=== PATIENT | male | born 1935 | race Two or more races ===

== ENCOUNTER 2024-03-11 08:48 | Emergency (ER) | payer MEDICARE, MEDICAID, SELFPAY ==
[2024-03-11 09:11] VITALS: BP 162/74; PULSE 68; RESP 20; TEMP 36.6; O2SAT 97; BMI 30.8
--- NOTE | 2024-03-11 09:35 | XR_ITS ---
Examination: PA lateral chest 2 views Technique: Upright PA lateral chest 2 views Exam date and time: March 11, 2024 1103 hours Comparison August 30, 2023 Indications: SOB chest pain onset today. Findings: Mild enlargement left ventricle COPD with significant hyperexpansion Prominent central pulmonary arteries pulmonary artery hypertension pattern Scarring in the lingular segment No lobar pneumonia or pulmonary edema Impression: COPD Pulmonary artery hypertension No lobar pneumonia or pulmonary edema
--- NOTE | 2024-03-11 09:36 | PD.EDRME ---
Rapid Medical Screening Exam RME Arrival date/time: 03/11/24 08:48 89-year-old male presents emergency department today complains of cough, congestion, body aches and shortness of breath Chief Complaint: Shortness of Breath/Dyspnea Vital signs: Vital Signs Temperature 97.8 F 03/11/24 09:11 Pulse Rate 68 03/11/24 09:11 Respiratory Rate 20 03/11/24 09:11 Blood Pressure 162/74 H 03/11/24 09:11 Pulse Oximetry (%) 97 03/11/24 09:11 Oxygen Delivery Method Room Air 03/11/24 09:11
[2024-03-11 09:56] LABS: Basophils % (Auto) 0 % (0-2.5); Eosinophils # (Auto) 0.2 Thou/mm3 (0.0-0.5); Eosinophils % (Auto) 2 % (0-10); Hemoglobin 11.8 g/dL (13.5-16.0); Immature Granulocytes % (Auto) 0 % (0-0); Immature Granulocytes Auto 0.02 Thou/mm3 (0.00-0.00); Lymphocytes # (Auto) 1.8 Thou/mm3 (1.0-4.8); Lymphocytes % (Auto) 27 % (10-50); Mean Corpuscular HGB Conc 32.8 g/dl (31.0-37.0); Mean Corpuscular Hemoglobin 28.9 pg (25.0-35.0); Mean Corpuscular Volume 88 fL (80-100); Monocytes # (Auto) 0.6 Thou/mm3 (0.0-0.8); Monocytes % (Auto) 10 % (0-12); Neutrophils # (Auto) 3.9 Thou/mm3 (1.8-7.7); Neutrophils % (Auto) 61 % (37-80); Nucleated Red Blood Cell % 0 /100 WBC (0); Platelet Count 321 Thou/mm3 (140-440); RDW Standard Deviation 43.7 fL (35.1-43.9); Red Blood Count 4.09 Miln/mm3 (4.50-5.90); White Blood Count 6.5 Thou/mm3 (3.8-10.6)
[2024-03-11 10:14] LABS: Alanine Aminotransferase 15 U/L (10-49); Albumin, Serum 4.1 gm/dL (3.4-4.8); Albumin/Globulin Ratio 1.4 (1.2-2.2); Alkaline Phosphatase 83 U/L (46-116); Anion Gap 7 (7-16); Aspartate Amino Transferase 12 U/L (0-34); B-Type Natriuretic Peptide 75 pg/mL (0-100); BUN/Creatinine Ratio 16 Ratio (12-20); Bilirubin,Total 0.4 mg/dL (0.3-1.2); Blood Urea Nitrogen 14 mg/dL (9-23); Calcium 8.9 mg/dL (8.3-10.6); Calcium (Corrected) 8.9 mg/dL (8.5-10.1); Carbon Dioxide 28.7 mMol/L (20.0-31.0); Chloride 106 mMol/L (98-107); Creatinine (Component) 0.9 mg/dL (0.6-1.3); Estimated Creatinine Clearance 59.7 mL/min (>60); Globulin 2.9 gm/dL (2.3-3.5); Glucose 107 mg/dL (74-106); Osmolality,Calculated 283 (275-295); Sodium 142 mMol/L (136-145); Troponin I < 0.020 ng/mL (0.0-0.045); eGFR > 60 See Note
[2024-03-11 12:47] VITALS: BP 147/74; PULSE 62; RESP 18; TEMP 37; O2SAT 98
--- NOTE | 2024-03-11 13:11 | PD.EDSOB ---
ED SOB =RME/HPI General Chief Complaint: Shortness of Breath/Dyspnea Stated Complaint: SOB, EPIGASTRIC PAIN, DIZZINESS Time Seen by Provider: 03/11/24 12:51 Arrival date/time: 03/11/24 08:48 This is an 89 male that comes to the emergency room with complaints of shortness of breath. Patient states that he has been sick for the last 15 days. He has been coughing and having shortness of breath. Patient denies past medical history. Patient states he has had a hard time at night because he has been coughing so much. Patient states that he feels fatigued. RME / HPI RME / HPI Narrative: 03/11/24 08:48 89-year-old male presents emergency department today complains of cough, congestion, body aches and shortness of breath Related Data Home Medications ?Medication ?Instructions ?Recorded ?Confirmed Ketorolac Tromethamine * (TORADOL 10 mg PO Q6HR PRN PAIN #0 tabs 11/05/16 *) PARACETAMOL 500 mg PO PRN PRN SEDATION ##0 11/05/16 omeprazole 20 mg capsule,delayed 20 mg PO QDAY ##0 11/05/16 release Previous Rx's ?Medication ?Instructions ?Recorded famotidine 20 mg tablet 20 mg PO QDAY #10 tabs 08/30/23 albuterol sulfate 90 mcg/actuation 2 puff inhalation QID PRN 03/11/24 aerosol inhaler shortness of breath or wheezing #8.5 grams Allergies Allergy/AdvReac Type Severity Reaction Status Date / Time NKA* Allergy Uncoded 03/22/17 13:11 Review of Systems Review of Systems Systems Reviewed: All systems reviewed, normal except as documented Past Medical History Past Medical History Comments PMH COMMENT: denies ED Exam General General appearance: Present alert and in no apparent distress Head Head exam: Present atraumatic Eye Eye exam: Present normal appearance, PERRL and EOMI ENT ENT exam: Present normal exam, normal oropharynx and mucous membranes moist Neck Neck exam: Present normal inspection, full ROM and trachea midline Chest Chest inspection: Present normal inspection and symmetric chest wall rise Respiratory Respiratory exam: Present other (Wheezing right posterior) Cardiovascular Cardiovascular exam: Present regular rate, normal rhythm and normal heart sounds Abdominal Exam Abdominal exam: Present soft Extremities Exam Extremities exam: Present normal inspection and full ROM Back Exam Back exam: Present normal inspection and full ROM Neurological Exam Neurological exam: Present alert and oriented X3 Psychiatric Psychiatric exam: Present normal affect and normal mood Skin Skin exam: Present warm, dry, intact and normal color Course Quality Measures none Orders Category Date Time Status Bedside COVID-19 Antigen Test NOW Care 03/11/24 13:26 Completed Bedside Influenza A&B Antigen Test NOW Care 03/11/24 13:26 Completed EKG (ED ONLY) *Do not use* NOW Care 03/11/24 08:59 Completed EKG (ED Only) Stat Exams 03/11/24 08:59 Ordered XR chest 2V Stat Exams 03/11/24 09:35 Completed BNP [B-Type Natriuretic Peptide] Stat Lab 03/11/24 09:42 Completed CBC Stat Lab 03/11/24 09:42 Completed Comprehensive Metabolic Panel Stat Lab 03/11/24 09:42 Completed Troponin I Stat Lab 03/11/24 09:42 Completed Acetaminophen Tab [Tylenol ES Tab] Med 03/11/24 13:29 Discontinued 1,000 mg PO X1 ONE Albuterol/Ipratr Rt Lucy [Duoneb Rt Lucy] Med 03/11/24 13:25 Discontinued 3 ml INH X1 ONE Dexamethasone Inj [Decadron Inj] Med 03/11/24 17:23 Discontinued 10 mg PO X1 ONE Ibuprofen Tab [Motrin Tab] Med 03/11/24 13:29 Discontinued 800 mg PO X1 ONE Vital Signs Vital signs: Vital Signs Temperature 97.8 F 03/11/24 09:11 Pulse Rate 68 03/11/24 09:11 Respiratory Rate 20 03/11/24 09:11 Blood Pressure 162/74 H 03/11/24 09:11 Pulse Oximetry (%) 97 03/11/24 09:11 Oxygen Delivery Method Room Air 03/11/24 09:11 Procedures -ED EKG Interpretation #1: Date of EK03/11/24 Time of EK:10 Rate: 70 Interpretation: Interpreted by me (Sinus rhythm Q wave in 1 week V1 and V2) EKG Impression: No ectopy, Normal QRS and Normal intervals Shortness of Breath / Dyspnea MDM Narrative MDM Narrative:: chest x ray Shows: Findings: Mild enlargement left ventricle COPD with significant hyperexpansion Prominent central pulmonary arteries pulmonary artery hypertension pattern Scarring in the lingular segment No lobar pneumonia or pulmonary edema Impression: COPD Pulmonary artery hypertension No lobar pneumonia or pulmonary edema labs reviewed. Patient slightly anemic on CBC. CMP unremarkable. Troponin unremarkable. BMP unremarkable. Patient improved after breathing treatment. Patient states he feels better. Will send patient home with an inhaler. Will give pt a dose of decadron. Pt comfortable with plan of care Patient data External records reviewed:: [facility] previous records Clinical information provided by:: patient Social determinants that could affect healthcare access:: none Patient has the following chronic illnesses:: see hpi How is presenting disease/condition affected by chronic disease/condition?: exacerbated by Evaluation data The following diagnostics were reviewed and interpreted by me:: lab results, radiology exam(s) and EKG tracing(s) Lab and/or radiology exams considered but not ordered:: none Interpretation Summary: see note Medications / Prescriptions Medications or Prescriptions considered but not ordered:: none Medication administrations:: Medication Administration History Discontinued Medications Acetaminophen (Acetaminophen 500 Mg Tablet) 1,000 mg PO X1 ONE Stop: 03/11/24 13:30 Last Admin: 03/11/24 17:56 Dose: Not Given Documented By: DARELL Non-Admin Reason: Patient Refused Comments: PT STATES THAT HE WANTS SOMETHING FOR HIS COUGH Albuterol/Ipratropium (Albuterol/Ipratropium (Duoneb) Rt Lucy 3 Ml Nebu) 3 ml INH X1 ONE Stop: 03/11/24 13:26 Last Admin: 03/11/24 14:05 Dose: 3 ml Documented By: RUBEN Dexamethasone Sodium Phosphate (Dexamethasone Sod Phos Inj 10 Mg/Ml Vial) 10 mg PO X1 ONE Stop: 03/11/24 17:24 Last Admin: 03/11/24 17:54 Dose: 10 mg Documented By: DARELL Ibuprofen (Ibuprofen Tab 400 Mg Tablet) 800 mg PO X1 ONE Stop: 03/11/24 13:30 Last Admin: 03/11/24 17:57 Dose: Not Given Documented By: DARELL Non-Admin Reason: Patient Refused Comments: PT STATES THAT HE WANTS SOMETHING FOR HIS COUGH see [facility] Consultations Consultation(s) initiated? (list below): No Diagnosis Shortness of Breath Differential Diagnosis: acute exacerbation of chronic obstructive airways disease, congestive heart failure, community acquired pneumonia and asthma with exacerbation Most likely diagnosis given after review of the tests above:: reactive airway disease Admission Indicated Admission indicated?: not indicated Admission Request Was there a request for admission?: No Disposition Plan Disposition Plan: Discharge Discharge Attestation Discharge Attestation: The patient and all family members were given an opportunity to ask questions and understood the discharge instructions. Discharge instructions specifically effects, indications for sooner follow up or return to the emergency department, and the expected course of current diagnosis. Patient condition: Stable Discharge Plan Plan Patient Disposition: HOME (Self Care) Patient condition on transfer: Stable Prescriptions/Referrals Prescriptions/Med Rec: New albuterol sulfate 90 mcg/actuation HFA aerosol inhaler 2 puff inhalation QID PRN (Reason: shortness of breath or wheezing) Qty: 8.5 0RF No Action omeprazole 20 MG capsule,delayed release(DR/EC) 20 mg PO QDAY Qty: 0 Ketorolac Tromethamine * (TORADOL *) 10 MG tablet 10 mg PO Q6HR PRN (Reason: PAIN) Qty: 0 PARACETAMOL 500 mg PO PRN PRN (Reason: SEDATION) Qty: 0 famotidine 20 mg tablet 20 mg PO QDAY Qty: 10 0RF Referrals: No Primary/Family,Physician [Primary Care Provider] - In 1 week Problem List Clinical Impression: Cough, Reactive airway disease Patient/Caregiver Discharge Instructions Discharge Activity: activity as tolerated Education Materials: Asthma and COPD, ED Inhaler Use Additional Instructions: May use inhaler as needed. Come back to the emergency room if symptoms change or worsen. Please follow-up with primary provider in 1 to 2 days. Print Language: Hebrew Stand Alone Forms: Marlin Award Info., Patient Portal Info Letter KEM/MACKENZIE Supervising Physician KEM/MACKENZIE Supervising Physician: ace
[2024-03-11 14:05] VITALS: PULSE 61; RESP 14; O2SAT 95
[2024-03-11] MEDS: ALBUTEROL/IPRATROPIUM (Duoneb) RT SOL 3 ML NEBU INH (14:05)
[2024-03-11 14:34] VITALS: BP 175/77; PULSE 62; RESP 17; O2SAT 98
[2024-03-11 16:00] VITALS: BP 114/58; PULSE 75; RESP 19; TEMP 36.9; O2SAT 95
[2024-03-11] MEDS: DEXAMETHASONE SOD PHOS INJ 10 MG/ML VIAL PO (17:54)
[2024-03-11 18:14] VITALS: BP 174/76; PULSE 72; RESP 18; O2SAT 98
== END 2024-03-11 18:15 | disposition home or self-care (01) ==
PROVIDERS: Nurse Practitioner Primary Care; Emergency Provider Emergency Medicine
DX: J45.909 Unspecified asthma, uncomplicated (principal)
CPT/HCPCS: 36415; 71046; 80053; 83880; 84484; 85025; 87400; 87811; 93005; 94640; 99283; A9270; J1100

== ENCOUNTER 2024-10-14 17:28 | Emergency (ER) | payer MEDICARE, MEDICAID, SELFPAY ==
[2024-10-14 17:30] VITALS: BMI 29.2
[2024-10-14 18:21] VITALS: BP 178/82; PULSE 89; RESP 17; TEMP 36.4; O2SAT 98
--- NOTE | 2024-10-14 18:51 | XR_ITS ---
Examination: CT abdomen and pelvis without contrast. Coronal 3-D reconstructions. Sagittal 2-D reconstructions. Date and time of exam:October 14, 2024, 1917 hrs. Indications: Unable to urinate today with abdominal pain CTDI: vol (mGy): 9.01 DLP: (mGycm): 511 Technique: Axial images of the abdomen have been obtained, 3 mm slice thickness Intravenous contrast material has not been administered. Low dose protocols were performed. One or more of the following dose reduction techniques were used; automated exposure control, adjustment of the mA and/or KV according to patient size, use of iterative reconstruction technique. Findings: 3 cm benign right renal cyst. Mild perinephric stranding. Aorta normal size. Normal appendix. No bowel obstruction. 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 Fat-containing inguinal hernias. Impression: Limited study. Significant prostatomegaly Consider pelvic sonography follow-up
[2024-10-14 19:15] LABS: Collection Type, Urine Clean Catch
--- NOTE | 2024-10-14 19:17 | PC.NURSE ---
500cc of urine immediately expelling into catherter bag, pt report last urination yesterday
[2024-10-14 19:27] LABS: Bilirubin,Urine Negative (Negative); Blood,Urine 1+ (Negative); Clarity,Urine Clear (Clear/Hazy); Color,Urine Colorless (Lt Yel-Yel); Glucose, Urine Negative (Negative); Hyaline Casts,Urine < 1 /hpf (0-1); Ketones,Urine Negative (Negative); Leukocyte Esterase,Urine Negative (Negative); Nitrite,Urine Negative (Negative); PH,Urine 6.0 (5.0-7.0); Protein,Urine Negative (Neg - Trace); RBC,Urine 1 /hpf (0-3); Specific Gravity,Urine 1.004 (1.001-1.035); Squamous Epithelial Cell,Urine < 1 /hpf (0-5); Urobilinogen,Urine Negative mg/dL (0.0-1.0); WBC,Urine < 1 /hpf (0-5)
[2024-10-14 19:34] LABS: Basophils # (Auto) 0.0 Thou/mm3 (0.0-0.2); Basophils % (Auto) 0 % (0-2.5); Eosinophils # (Auto) 0.1 Thou/mm3 (0.0-0.5); Eosinophils % (Auto) 1 % (0-10); Hematocrit 37.4 % (41.0-53.0); Hemoglobin 12.6 g/dL (13.5-16.0); Immature Granulocytes Auto 0.03 Thou/mm3 (0.00-0.00); Lymphocytes # (Auto) 1.3 Thou/mm3 (1.0-4.8); Lymphocytes % (Auto) 14 % (10-50); Mean Corpuscular HGB Conc 33.7 g/dl (31.0-37.0); Mean Corpuscular Hemoglobin 30.1 pg (25.0-35.0); Mean Corpuscular Volume 90 fL (80-100); Monocytes # (Auto) 0.6 Thou/mm3 (0.0-0.8); Monocytes % (Auto) 7 % (0-12); Neutrophils # (Auto) 7.2 Thou/mm3 (1.8-7.7); Neutrophils % (Auto) 78 % (37-80); Nucleated Red Blood Cell # 0.00 Thou/mm3 (0.00-0.00); Nucleated Red Blood Cell % 0 /100 WBC (0); Platelet Count 243 Thou/mm3 (140-440); RDW Standard Deviation 44.1 fL (35.1-43.9); Red Blood Count 4.18 Miln/mm3 (4.50-5.90); White Blood Count 9.2 Thou/mm3 (3.8-10.6)
[2024-10-14 20:34] VITALS: BP 147/75; PULSE 75; RESP 18; TEMP 37.1; O2SAT 98
--- NOTE | 2024-10-14 20:42 | PC.NURSE ---
pt on his left side sleeping, antoner inact
[2024-10-14 21:27] LABS: Alanine Aminotransferase < 7 U/L (10-49); Albumin, Serum 4.3 gm/dL (3.4-4.8); Albumin/Globulin Ratio 1.9 (1.2-2.2); Alkaline Phosphatase 155 U/L (46-116); Anion Gap 12 (7-16); Aspartate Amino Transferase 24 U/L (0-34); BUN/Creatinine Ratio 11 Ratio (12-20); Bilirubin,Total 0.5 mg/dL (0.3-1.2); Blood Urea Nitrogen 9 mg/dL (9-23); Calcium 9.5 mg/dL (8.3-10.6); Calcium (Corrected) 9.5 mg/dL (8.5-10.1); Carbon Dioxide 24.5 mMol/L (20.0-31.0); Chloride 101 mMol/L (98-107); Creatinine (Component) 0.8 mg/dL (0.6-1.3); Estimated Creatinine Clearance 61.1 mL/min (>60); Globulin 2.3 gm/dL (2.3-3.5); Glucose 109 mg/dL (74-106); Lipase 39 U/L (12-53); Osmolality,Calculated 273 (275-295); Potassium 4.1 mMol/L (3.4-5.1); Sodium 137 mMol/L (136-145); Total Protein 6.6 gm/dL (5.7-8.2); eGFR > 60 See Note
--- NOTE | 2024-10-14 22:26 | PD.EDMALE ---
ED Male Genitalurinary RME/HPI General Chief complaint: Urogenital-Male Stated complaint: UNABLE TO PEE AND ABD PAIN FOR 2 DAYS Time Seen by Provider: 10/14/24 18:49 Arrival date/time: 10/14/24 17:28 This is a case of 89-year-old male with history of urinary retention and BPH came in in the emergency room due to unable to urinate for 6 hours associated with lower abdominal pain cramping in character patient denies any nausea vomiting fever chills denies any constipation diarrhea blood in the urine blood in stool or painful urination persistence of the symptoms this patient decided to sought consult here in the emergency room Limitations: no limitations Related Data Home Medications ?Medication ?Instructions ?Recorded ?Confirmed Ketorolac Tromethamine * (TORADOL 10 mg PO Q6HR PRN PAIN #0 tabs 11/05/16 *) PARACETAMOL 500 mg PO PRN PRN SEDATION ##0 11/05/16 omeprazole 20 mg capsule,delayed 20 mg PO QDAY ##0 11/05/16 release Previous Rx's ?Medication ?Instructions ?Recorded famotidine 20 mg tablet 20 mg PO QDAY #10 tabs 08/30/23 albuterol sulfate 90 mcg/actuation 2 puff inhalation QID PRN 03/11/24 aerosol inhaler shortness of breath or wheezing #8.5 grams cephalexin 500 mg capsule 500 mg PO QID #40 caps 10/14/24 Allergies Allergy/AdvReac Type Severity Reaction Status Date / Time No Known Allergies Allergy Verified 10/14/24 17:36 Review of Systems Review of Systems Systems Reviewed: All systems reviewed, normal except as documented Constitutional Constitutional: Reports system reviewed and no additional complaints, except as documented, Reports as per HPI, Denies anorexia, Denies chills and Denies fever(s) Cardiovascular Cardiovascular: Reports system reviewed and no additional complaints, except as documented, Reports as per HPI, Denies chest pain and Denies dyspnea Respiratory Respiratory: Reports system reviewed and no additional complaints, except as documented, Reports as per HPI and Denies dyspnea Gastrointestinal Gastrointestinal: Reports system reviewed and no additional complaints, except as documented, Reports as per HPI, Reports abdominal pain, Denies nausea and Denies vomiting Genitourinary Genitourinary: Reports system reviewed and no additional complaints, except as documented, Reports as per HPI, Reports difficulty urinating, Denies dysuria, Denies flank pain, Denies genital lesions, Denies genital pain, Denies hematuria, Denies nocturia, Reports oliguria, Denies penile discharge, Denies scrotal swelling, Denies testicular mass, Denies testicular pain, Denies urinary frequency, Denies urinary hesitancy, Denies urinary incontinence and Denies urinary urgency Neurologic Neurologic: Reports system reviewed and no additional complaints, except as documented and Reports as per HPI Past Medical History Past Medical History CARDIAC: Positive Hypercholesterolemia and Hypertension; Negative Congestive Heart Failure RESPIRATORY: Negative Chronic Obstructive Pulmonary Disease (COPD) GASTROINTESTINAL: Positive Gastroesophageal Reflux Disease GENITOURINARY: Negative Renal Disease ENDOCRINE: Positive Diabetes Mellitus Type 2; Negative Diabetes Mellitus Type 1 Social History SMOKING STATUS: Never smoker ED Exam General Limitations: Present no limitations General appearance: Present other (Patient is awake alert oriented not in distress nontoxic looking well-hydrated well-nourished) Head Head exam: Present atraumatic, normocephalic and normal inspection Eye Eye exam: Present normal appearance, PERRL and EOMI ENT ENT exam: Present normal exam, normal oropharynx and mucous membranes moist Neck Neck exam: Present normal inspection, full ROM and trachea midline; Absent tenderness, meningismus, lymphadenopathy or thyromegaly Chest Chest inspection: Present normal inspection and symmetric chest wall rise; Absent tenderness Respiratory Respiratory exam: Present normal lung sounds bilaterally; Absent respiratory distress, wheezes, stridor, accessory muscle use or prolonged expiratory phase Cardiovascular Cardiovascular exam: Present regular rate, normal rhythm and normal heart sounds; Absent bradycardia, tachycardia, irregular rhythm, systolic murmur or diastolic murmur Abdominal Exam Abdominal exam: Present soft and normal bowel sounds; Absent distention, tenderness, guarding, rebound, rigidity, diminished bowel sounds, hyperactive bowel sounds, hypoactive bowel sounds, organomegaly, psoas sign, obturator sign, Joseph's sign, Rovsing's sign, tenderness at McBurney's Point, ascites or hernia exam: Present other (Patient refused) Extremities Exam Extremities exam: Present normal inspection and full ROM Back Exam Back exam: Present normal inspection and full ROM; Absent CVA tenderness (R) or CVA tenderness (L) Neurological Exam Neurological exam: Present alert, oriented X3, CN II-XII intact, normal gait and reflexes normal; Absent motor sensory deficit Psychiatric Psychiatric exam: Present normal affect and normal mood Skin Skin exam: Present warm, dry, intact and normal color Course Quality Measures none Orders Category Date Time Status Ordonez [Urinary Catheter] QS Care 10/14/24 18:[address] abdomen pelvis wo con Stat Exams 10/14/24 18:51 Completed CBC Stat Lab 10/14/24 19:22 Completed Comprehensive Metabolic Panel Stat Lab 10/14/24 19:22 Completed Lipase Stat Lab 10/14/24 19:22 Completed Urinalysis Stat Lab 10/14/24 19:11 Completed Vital Signs Vital signs: Vital Signs Temperature 97.5 F 10/14/24 18:21 Pulse Rate 89 10/14/24 18:21 Respiratory Rate 17 10/14/24 18:21 Blood Pressure 178/82 H 10/14/24 18:21 Pulse Oximetry (%) 98 10/14/24 18:21 Oxygen Delivery Method Room Air 10/14/24 18:21 Patient oxygen saturation is 98% in room air Urogenital - Male MDM Narrative MDM Narrative:: This is a case of 89-year-old male with history of urinary retention and BPH came in in the emergency room due to unable to urinate for 6 hours associated with lower abdominal pain cramping in character patient denies any nausea vomiting fever chills denies any constipation diarrhea blood in the urine blood in stool or painful urination persistence of the symptoms this patient decided to sought consult here in the emergency room physical examination patient is awake alert oriented not in distress nontoxic looking well-hydrated well-nourished no signs and symptoms of sepsis no signs and symptoms of dehydration lungs sound is clear no crackles no rales no retraction no stridor heart normal rate regular rhythm no murmur patient abdominal exam is benign nonsurgical no guarding no rebound no rigidity negative psoas negative straight or negative Rovsing's negative Luisito's no Joseph sign negative CVA tenderness bladder is palpated and slightly distended no CVA tenderness based on my physical examination and history patient symptoms suggestive of acute urinary retention Ordonez catheter was inserted patient tolerated well no blood in the urine patient took about 800 cc of urine blood test showed normal leukocytosis no anemia kidney and liver function is normal no electrolyte imbalance urinalysis is normal no urinary tract infection lipase is normal patient CT scan showed prostatomegaly or BPH and inguinal hernia patient was advised to follow-up with PCP to be referred to urologist for urinary retention and inguinal hernia and BPH he was advised to retain the Ordonez catheter until seen by the urologist Ordonez catheter care was advised importance to see the specialist was discussed with the patient patient understood very well the discharge instruction cephalexin was prescribed to prevent infection return precaution to the ER is advised Patient was discharged with comfortable condition walking with stable gait. Patient verbalized no further complains explained diagnosis and answered patient question. Patient is comfortable with the proposed management plan including the need to follow up with his/her primary care physician and any specialist if applicable Discussed patient for any urgent condition or worsening sx, He/She needed to go to emergency room immediately or call 911. Patient acknowledge the responsibility to follow up as instructed and to monitor her/his symptoms. For any persistence of the symptoms for more than 3-5 days return precaution advised. Discussed the result of the test and was given printed discharge instruction Patient data External records reviewed:: [facility] previous records Clinical information provided by:: patient Social determinants that could affect healthcare access:: none Patient has the following chronic illnesses:: None How is presenting disease/condition affected by chronic disease/condition?: no chronic disease Evaluation data The following diagnostics were reviewed and interpreted by me:: lab results and radiology exam(s) Lab and/or radiology exams considered but not ordered:: Reviewed Interpretation Summary: Reviewed Medications / Prescriptions Medications or Prescriptions considered but not ordered:: Given Medication administrations:: Given Consultations Consultation(s) initiated? (list below): No Diagnosis Urogenital Male Differential Diagnosis: urinary tract infection, prostatitis, acute retention of urine, inguinal hernia and other (BPH urinary retention) Most likely diagnosis given after review of the tests above:: Urinary retention BPH Admission Indicated Admission indicated?: not indicated Explain why admission is indicated or not indicated:: Not indicated Admission Request Was there a request for admission?: No Admission Attestation Admission request attestation: Not indicated Disposition Plan Disposition Plan: Discharge Discharge Attestation Discharge Attestation: The patient and all family members were given an opportunity to ask questions and understood the discharge instructions. Discharge instructions specifically effects, indications for sooner follow up or return to the emergency department, and the expected course of current diagnosis. Patient condition: Stable Discharge Plan Plan Patient Disposition: HOME (Self Care) Patient condition on transfer: Stable Prescriptions/Referrals Prescriptions/Med Rec: New cephalexin 500 mg capsule 500 mg PO QID Qty: 40 0RF No Action omeprazole 20 MG capsule,delayed release(/EC) 20 mg PO QDAY Qty: 0 Ketorolac Tromethamine * (TORADOL *) 10 MG tablet 10 mg PO Q6HR PRN (Reason: PAIN) Qty: 0 PARACETAMOL 500 mg PO PRN PRN (Reason: SEDATION) Qty: 0 albuterol sulfate 90 mcg/actuation HFA aerosol inhaler 2 puff inhalation QID PRN (Reason: shortness of breath or wheezing) Qty: 8.5 0RF famotidine 20 mg tablet 20 mg PO QDAY Qty: 10 0RF Referrals: Chetan Chapman MD [Primary Care Provider, Family Practice] - In 1 week Diego Heller MD [Physician, Urology] - 10/15/24 Referral Note: For further evaluation and treatment of BPH and urinary retention and inguinal hernia Problem List Clinical Impression: Acute urinary retention, BPH (benign prostatic hyperplasia), Inguinal hernia Patient/Caregiver Discharge Instructions Education Materials: ED BPH (Enlarged Prostate), ED Hernia (Adult), ED Urinary Retention, Male Additional Instructions: Follow-up with your primary care physician in 2 days for reevaluation and to be referred to urologist for further evaluation and treatment of BPH urinary retention and inguinal hernia recurrence persistent worsening symptoms or any emergent concern call 911 or go to the nearest emergency room keep the Ordonez catheter in place until cleared by your urology Ordonez catheter care advised keep hydrated take your medication and finish the course of antibiotic Print Language: Tajik Stand Alone Forms: Marlin Award Info., Patient Portal Info Letter PA/DIRECTOR OF ACADEMIC Supervising Physician PA/DIRECTOR OF ACADEMIC Supervising Physician: Dr. Arriaga
[2024-10-14] MEDS: MG HYD/AL HYD/SIME (Maalox Reg) SUSP 30 ML UDC PO (23:32)
[2024-10-14] MEDS: HYDROcodone/APAP 5/325 TABLET 1 TAB PO (23:32)
[2024-10-14] MEDS: LIDOCAINE VISCOUS 2% 15 ML UDC PO (23:32)
[2024-10-14] MEDS: ONDANSETRON ODT 4 MG TABRAP PO (23:33)
[2024-10-14] MEDS: FAMOTIDINE 20 MG TABLET 40 MG PO (23:33)
--- NOTE | 2024-10-15 03:24 | PC.NURSE ---
asleep. arouses easily. pot has beedn discharged but has no ride. pt aloud to sleep until morning bus.
[2024-10-15 06:00] VITALS: BP 152/84; PULSE 80; RESP 18; TEMP 37; O2SAT 97
--- NOTE | 2024-10-15 06:02 | PC.NURSE ---
pt up ambulated to br then bck to sleep.
== END 2024-10-15 08:00 | disposition home or self-care (01) ==
PROVIDERS: Nurse Practitioner Family; Emergency Provider Emergency Medicine; PCP Family Medicine
DX: N40.1 Benign prostatic hyperplasia with lower urinary tract symptoms (principal); R33.8 Other retention of urine; K40.90 Unilateral inguinal hernia, without obstruction or gangrene, not specified as recurrent
CPT/HCPCS: 51702; 36415; 74176; 80053; 81001; 83690; 85025; 99284; J3490; Q0162; A9270

== ENCOUNTER 2024-10-19 14:04 | Emergency (ER) | payer MEDICARE, MEDICAID, SELFPAY ==
[2024-10-19 14:04] VITALS: BMI 30.7
[2024-10-19 14:27] VITALS: BP 140/65; PULSE 98; RESP 20; TEMP 36.5; O2SAT 96
--- NOTE | 2024-10-19 16:08 | PD.EDMALE ---
ED Male Genitalurinary RME/HPI General Chief complaint: Urogenital-Male Stated complaint: NEED ZAFAR CHANGE Time Seen by Provider: 10/19/24 14:05 Source: patient Arrival date/time: 10/19/24 14:04 89-year-old 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 Mode of arrival: ambulatory Limitations: no limitations Related Data Home Medications ?Medication ?Instructions ?Recorded ?Confirmed Ketorolac Tromethamine * (TORADOL 10 mg PO Q6HR PRN PAIN #0 tabs 11/05/16 *) PARACETAMOL 500 mg PO PRN PRN SEDATION ##0 11/05/16 omeprazole 20 mg capsule,delayed 20 mg PO QDAY ##0 11/05/16 release Previous Rx's ?Medication ?Instructions ?Recorded famotidine 20 mg tablet 20 mg PO QDAY #10 tabs 08/30/23 albuterol sulfate 90 mcg/actuation 2 puff inhalation QID PRN 03/11/24 aerosol inhaler shortness of breath or wheezing #8.5 grams cephalexin 500 mg capsule 500 mg PO QID #40 caps 10/14/24 Allergies Allergy/AdvReac Type Severity Reaction Status Date / Time No Known Allergies Allergy Verified 10/19/24 14:04 Review of Systems Review of Systems Systems Reviewed: All systems reviewed, normal except as documented Constitutional Constitutional: Reports system reviewed and no additional complaints, except as documented, Denies fatigue, Denies fever(s), Denies headache(s) and Denies weakness Eyes Eyes: Reports system reviewed and no additional complaints, except as documented, Denies blurry vision and Denies change in vision ENT Ears, Nose, Mouth, and Throat: Reports system reviewed and no additional complaints, except as documented, Denies otalgia, Denies headache(s), Denies nasal congestion, Denies throat swelling and Denies vertigo Cardiovascular Cardiovascular: Reports system reviewed and no additional complaints, except as documented, Denies chest pain, Denies dyspnea and Denies dyspnea on exertion Respiratory Respiratory: Reports system reviewed and no additional complaints, except as documented, Denies chest congestion, Denies cough, Denies dyspnea, Denies dyspnea on exertion and Denies wheezing Gastrointestinal Gastrointestinal: Reports system reviewed and no additional complaints, except as documented, Denies abdominal pain, Denies cramping, Denies nausea and Denies vomiting Genitourinary Genitourinary: Reports system reviewed and no additional complaints, except as documented, Denies dysuria and Denies hematuria Musculoskeletal Musculoskeletal: Reports system reviewed and no additional complaints, except as documented and Denies back pain Integumentary/Breasts Skin/Breast: Reports system reviewed and no additional complaints, except as documented and Denies wounds Neurologic Neurologic: Reports system reviewed and no additional complaints, except as documented, Denies confusion, Denies headache(s), Denies lack of coordination, Denies vertigo and Denies weakness Psychiatric Psychiatric: Reports system reviewed and no additional complaints, except as documented, Denies anxiety, Denies confusion, Denies depression, Denies paranoia, Denies suicidal ideation and Denies tactile hallucinations Endocrine Endocrine: Reports system reviewed and no additional complaints, except as documented and Denies fatigue Hematologic/Lymphatic Hematologic/Lymphatic: Reports system reviewed and no additional complaints, except as documented and Denies lymphadenopathy Allergic/Immunologic Allergic/Immunologic: Reports system reviewed and no additional complaints, except as documented, Denies throat swelling, Denies urticaria and Denies wheezing Past Medical History Past Medical History CARDIAC: Positive Hypercholesterolemia and Hypertension; Negative Congestive Heart Failure RESPIRATORY: Negative Chronic Obstructive Pulmonary Disease (COPD) GASTROINTESTINAL: Positive Gastroesophageal Reflux Disease GENITOURINARY: Negative Renal Disease ENDOCRINE: Positive Diabetes Mellitus Type 2; Negative Diabetes Mellitus Type 1 Social History SMOKING STATUS: Never smoker ED Exam General Limitations: Present no limitations General appearance: Present alert and in no apparent distress Head Head exam: Present atraumatic Eye Eye exam: Present normal appearance, PERRL and EOMI ENT ENT exam: Present normal exam, normal oropharynx and mucous membranes moist Neck Neck exam: Present normal inspection, full ROM and trachea midline Chest Chest inspection: Present normal inspection and symmetric chest wall rise Respiratory Respiratory exam: Present normal lung sounds bilaterally Cardiovascular Cardiovascular exam: Present regular rate, normal rhythm and normal heart sounds Abdominal Exam Abdominal exam: Present soft and normal bowel sounds Extremities Exam Extremities exam: Present normal inspection and full ROM Back Exam Back exam: Present normal inspection and full ROM Neurological Exam Neurological exam: Present alert, oriented X3 and CN II-XII intact Psychiatric Psychiatric exam: Present normal affect and normal mood Skin Skin exam: Present warm, dry, intact and normal color Course Quality Measures none Orders Category Date Time Status Bladder Scan NEEDED Care 10/19/24 15:47 Completed Zafar [Urinary Catheter] QS Care 10/19/24 14:45 Completed Vital Signs Vital signs: Vital Signs Temperature 97.7 F 10/19/24 14:27 Pulse Rate 98 10/19/24 14:27 Respiratory Rate 20 10/19/24 14:27 Blood Pressure 140/65 H 10/19/24 14:27 Pulse Oximetry (%) 96 10/19/24 14:27 Oxygen Delivery Method Room Air 10/19/24 14:27 Urogenital - Male MDM Narrative MDM Narrative:: 89-year-old 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 Patient is hemodynamically stable and in no apparent distress. Patient is afebrile not tachycardic not tachypneic. Patient denies any dysuria or hematuria. Physical examination shows a soft nontender abdomen. Patient's urinary catheter is dislodged from the patient's leg bag. Patient states he dislodged due to his urinary catheter leaking around the urethra. A Zafar catheter was replaced with no complications. A bigger size was put in. A bladder scan was then used to make sure that there is no urine in the bladder. Patient states he is followed up with his primary care provider and has an appointment to see his urologist. Patient was discharged and educated to follow-up with primary care provider in the next 24 to 48 hours and return to the emergency room for any evidence of worsening signs or symptoms Patient data External records reviewed:: [facility] previous records Clinical information provided by:: patient Social determinants that could affect healthcare access:: none Patient has the following chronic illnesses:: BPH How is presenting disease/condition affected by chronic disease/condition?: exacerbated by Evaluation data The following diagnostics were reviewed and interpreted by me:: lab results and radiology exam(s) Lab and/or radiology exams considered but not ordered:: Labs and radiology exams considered and ordered Interpretation Summary: N/A Medications / Prescriptions Medications or Prescriptions considered but not ordered:: No medication given Medication administrations:: No medication given Consultations Consultation(s) initiated? (list below): No Diagnosis Urogenital Male Differential Diagnosis: urinary tract infection, prostatitis, acute retention of urine and other (Urinary catheter replacement) Most likely diagnosis given after review of the tests above:: Urinary catheter placement Admission Indicated Admission indicated?: not indicated Admission Request Was there a request for admission?: No Disposition Plan Disposition Plan: Discharge Discharge Attestation Discharge Attestation: The patient and all family members were given an opportunity to ask questions and understood the discharge instructions. Discharge instructions specifically effects, indications for sooner follow up or return to the emergency department, and the expected course of current diagnosis. Patient condition: Stable Discharge Plan Plan Patient Disposition: HOME (Self Care) Discharge Disposition comment: Stable Prescriptions/Referrals Prescriptions/Med Rec: No Action omeprazole 20 MG capsule,delayed release(DR/EC) 20 mg PO QDAY Qty: 0 Ketorolac Tromethamine * (TORADOL *) 10 MG tablet 10 mg PO Q6HR PRN (Reason: PAIN) Qty: 0 PARACETAMOL 500 mg PO PRN PRN (Reason: SEDATION) Qty: 0 albuterol sulfate 90 mcg/actuation HFA aerosol inhaler 2 puff inhalation QID PRN (Reason: shortness of breath or wheezing) Qty: 8.5 0RF cephalexin 500 mg capsule 500 mg PO QID Qty: 40 0RF famotidine 20 mg tablet 20 mg PO QDAY Qty: 10 0RF Referrals: No Primary/Family,Physician [Primary Care Provider] - In 1 week Problem List Clinical Impression: Encounter for replacement of urinary catheter Patient/Caregiver Discharge Instructions Additional Instructions: Por favor, acuda a hansen m?dico de cabecera en las pr?ximas 24 a 48 horas. Por favor, acuda a hansen sushma con el ur?logo. Se le reemplaz? la sonda urinaria sin complicaciones. Ante cualquier signo de empeoramiento de los signos o s?ntomas, acuda inmediatamente a urgencias. Print Language: Yakut Stand Alone Forms: Marlin Award Info., Patient Portal Info Letter PA/DIRECTOR OF ELEMENTARY EDUCATION Supervising Physician PA/DIRECTOR OF ELEMENTARY EDUCATION Supervising Physician: Dr. Mosqueda
== END 2024-10-19 16:36 | disposition home or self-care (01) ==
PROVIDERS: Emergency Provider Nurse Practitioner Family
DX: T83.031A Leakage of indwelling urethral catheter, initial encounter (principal); T83.021A Displacement of indwelling urethral catheter, initial encounter; Y84.6 Urinary catheterization as the cause of abnormal reaction of the patient, or of later complication, without mention of misadventure at the time of the procedure
CPT/HCPCS: 51702; 99284; A4314

== ENCOUNTER 2024-11-10 09:28 | Emergency (ER) | payer MEDICARE, MEDICAID, SELFPAY ==
[2024-11-10 09:29] VITALS: BMI 31.7
[2024-11-10 09:35] VITALS: BP 132/74; PULSE 105; RESP 18; TEMP 36.6; O2SAT 94; BMI 29.7
[2024-11-10 10:00] LABS: Collection Type, Urine Voided; Squamous Epithelial Cell,Urine 0 /hpf (0-5)
--- NOTE | 2024-11-10 10:11 | PD.EDMALE ---
ED Male Genitalurinary RME/HPI General Chief complaint: Urogenital-Male Stated complaint: URINARY RETENTION X1 DAY Time Seen by Provider: 11/10/24 09:35 Arrival date/time: 11/10/24 09:28 This is an 89-year-old male that comes into the emergency room with complaints of problems with South catheter. Patient states he was here last month on October 19 and a South catheter was placed at that time. Patient has been here in the past. Patient states that his South catheter was not working as well. And needs it replaced. Related Data Home Medications ?Medication ?Instructions ?Recorded ?Confirmed Ketorolac Tromethamine * (TORADOL 10 mg PO Q6HR PRN PAIN #0 tabs 11/05/16 *) PARACETAMOL 500 mg PO PRN PRN SEDATION ##0 11/05/16 omeprazole 20 mg capsule,delayed 20 mg PO QDAY ##0 11/05/16 release Previous Rx's ?Medication ?Instructions ?Recorded famotidine 20 mg tablet 20 mg PO QDAY #10 tabs 08/30/23 albuterol sulfate 90 mcg/actuation 2 puff inhalation QID PRN 03/11/24 aerosol inhaler shortness of breath or wheezing #8.5 grams cephalexin 500 mg capsule 500 mg PO QID #40 caps 10/14/24 sulfamethoxazole 800 1 tab PO Q12H #14 tabs 11/14/24 mg-trimethoprim 160 mg tablet (Bactrim DS) sulfamethoxazole 800 1 tab PO Q12H 7 days #14 tabs 11/18/24 mg-trimethoprim 160 mg tablet (Bactrim DS) Allergies Allergy/AdvReac Type Severity Reaction Status Date / Time No Known Allergies Allergy Verified 11/18/24 13:06 Review of Systems Review of Systems Systems Reviewed: All systems reviewed, normal except as documented Past Medical History Past Medical History CARDIAC: Positive Hypercholesterolemia and Hypertension; Negative Congestive Heart Failure RESPIRATORY: Negative Chronic Obstructive Pulmonary Disease (COPD) GASTROINTESTINAL: Positive Gastroesophageal Reflux Disease GENITOURINARY: Negative Renal Disease ENDOCRINE: Positive Diabetes Mellitus Type 2; Negative Diabetes Mellitus Type 1 Social History SMOKING STATUS: Never smoker ED Exam Narrative Physical exam: VITAL SIGNS: Reviewed. GENERAL APPEARANCE: Alert and interactive, follows commands, no acute distress HEAD AND FACE: Non-traumatic. ENT: PERRL, conjuctiva pink and clear, eyelid no trauma, Mucous membrane moist. NECK: Supple, nontender, no nuchal rigidity. CHEST: No tenderness, no crepitus, no paradoxical movement, no retractions. LUNGS: breathing even and unlabored HEART: Regular rate, cap refill less than 2 seconds ABDOMEN: Soft, nondistended, no guarding, nontender NEUROLOGICAL: Gross motor function intact sensory function intact, Appropriate for age. MUSCULOSKELETAL: low back nontender, full range of motion. no midline tenderness, no meningismus, no step offs EXTREMITIES: No redness no swelling no skin breakdown on bilateral foot and leg. Distal neurovascular status intact bilateral foot SKIN: Color pink, dry, no rash Course Quality Measures none Orders Category Date Time Status South [Urinary Catheter] QS Care 11/10/24 09:42 Completed Urinalysis, C/S if Indicated Stat Lab 11/10/24 09:55 Completed Urine Culture Stat Lab 11/10/24 09:55 Completed Acetaminophen Tab [Tylenol ES Tab] Med 11/10/24 10:24 Discontinued 1,000 mg PO X1 ONE cefTRIAXone [Rocephin] 1,000 mg Med 11/10/24 10:24 Discontinued Lidocaine 1% 20 ml [Xylocaine 1% 20 ML] 2.1 ml IM X1 Vital Signs Vital signs: Vital Signs Temperature 97.8 F 11/10/24 09:35 Pulse Rate 105 H 11/10/24 09:35 Respiratory Rate 18 11/10/24 09:35 Blood Pressure 132/74 H 11/10/24 09:35 Pulse Oximetry (%) 94 L 11/10/24 09:35 Oxygen Delivery Method Room Air 11/10/24 09:35 Urogenital - Male MDM Narrative MDM Narrative:: I spoke to patient at length. South catheter is draining with no issues now. Patient does seem to have some hematuria. Patient states that he was pulling on his catheter. And he reports that this is not the first time he has done that. Patient has a small abrasion to the tip of his penis. recommend buttpaste or barrier cream like zinc oxide. Patient feels better after catheter placed. Will treat patient with Rocephin. I will send patient home with antibiotics and send for culture. Patient had a CT scan of abdomen pelvis recently. Patient denies any fever or chills. Will not order lab work or any CT scan at this time. Catheter is draining with no issues. I explained to patient at length that if symptoms change or worsening to come to the emergency room. If he is having trouble with his catheter he is to come back to the emergency room. Patient states he already has a follow-up appointment. I told him to keep scheduled appointment. Dragon dictation: Although this document has been carefully reviewed, there may still be some phonetic and other typographical errors. These errors are purely grammatical due to imperfections in the software program and should not be construed in any way to compromise the substance of the patient's medical care during this visit. Patient data External records reviewed:: [facility] previous records Clinical information provided by:: patient Social determinants that could affect healthcare access:: none Patient has the following chronic illnesses:: none How is presenting disease/condition affected by chronic disease/condition?: no chronic disease Evaluation data The following diagnostics were reviewed and interpreted by me:: other (specify) (none) Lab and/or radiology exams considered but not ordered:: none Interpretation Summary: see note Medications / Prescriptions Medications or Prescriptions considered but not ordered:: none Medication administrations:: Medication Administration History Discontinued Medications Acetaminophen (Acetaminophen 500 Mg Tablet) 1,000 mg PO X1 ONE Stop: 11/10/24 10:25 Last Admin: 11/10/24 11:50 Dose: 1,000 mg Documented By: OA Ceftriaxone Sodium 1,000 mg/ (Lidocaine HCl 2.1 ml) 0 mg IM X1 ONE Stop: 11/10/24 10:25 Last Admin: 11/10/24 11:50 Dose: 2.1 mg Documented By: OA see mar Consultations Consultation(s) initiated? (list below): No Diagnosis Urogenital Male Differential Diagnosis: urinary tract infection, acute retention of urine and other (south catheter problems) Most likely diagnosis given after review of the tests above:: south catheter porblems Admission Indicated Admission indicated?: not indicated Admission Request Was there a request for admission?: No Disposition Plan Disposition Plan: Discharge Discharge Attestation Discharge Attestation: The patient and all family members were given an opportunity to ask questions and understood the discharge instructions. Discharge instructions specifically effects, indications for sooner follow up or return to the emergency department, and the expected course of current diagnosis. Patient condition: Stable Discharge Plan Plan Patient Disposition: HOME (Self Care) Patient condition on transfer: Stable Prescriptions/Referrals Prescriptions/Med Rec: New sulfamethoxazole-trimethoprim [Bactrim DS] 800-160 mg tablet 1 tab PO Q12H Qty: 14 0RF No Action omeprazole 20 MG capsule,delayed release(DR/EC) 20 mg PO QDAY Qty: 0 Ketorolac Tromethamine * (TORADOL *) 10 MG tablet 10 mg PO Q6HR PRN (Reason: PAIN) Qty: 0 PARACETAMOL 500 mg PO PRN PRN (Reason: SEDATION) Qty: 0 albuterol sulfate 90 mcg/actuation HFA aerosol inhaler 2 puff inhalation QID PRN (Reason: shortness of breath or wheezing) Qty: 8.5 0RF cephalexin 500 mg capsule 500 mg PO QID Qty: 40 0RF sulfamethoxazole-trimethoprim [Bactrim DS] 800-160 mg tablet 1 tab PO Q12H 7 Days Qty: 14 0RF famotidine 20 mg tablet 20 mg PO QDAY Qty: 10 0RF Referrals: Chetan Chapman MD [Primary Care Provider, Family Practice] - In 1 week Problem List Clinical Impression: Urinary tract infection, Acute urinary retention, Encounter for South catheter replacement, Encounter for South catheter removal Patient/Caregiver Discharge Instructions Discharge Activity: activity as tolerated Education Materials: ED Bladder Infection, Male (Adult) Additional Instructions: Kelly un sushma con hansen medico de cabecera en las proximas 24-48 horas. Regrese a la keagan de emergencias si hay evidencia de que los signos o sintomas empeoran. Print Language: [place]ese Stand Alone Forms: Marlin Award Info., Patient Portal Info Letter PA/HANDWRITING EXPERT Supervising Physician PA/HANDWRITING EXPERT Supervising Physician: fartun
[2024-11-10 11:25] LABS: Bilirubin,Urine Negative (Negative); Blood,Urine 3+ (Negative); Clarity,Urine Turbid (Clear/Hazy); Color,Urine Brown (Lt Yel-Yel); Culture Indicated,Urine Yes; Glucose, Urine Negative (Negative); Ketones,Urine Negative (Negative); Leukocyte Esterase,Urine Positive (Negative); Nitrite,Urine Negative (Negative); PH,Urine 7.5 (5.0-7.0); Protein,Urine 1+ (Neg - Trace); RBC,Urine 4664 /hpf (0-3); Specific Gravity,Urine 1.016 (1.001-1.035); Urobilinogen,Urine Negative mg/dL (0.0-1.0); WBC,Urine 375 /hpf (0-5)
[2024-11-10] MEDS: cefTRIAXone 1,000 MG, LIDOCAINE 1% 20 ML 2.1 ML IM (11:50)
[2024-11-10] MEDS: ACETAMINOPHEN 500 MG TABLET 1000 MG PO (11:50)
--- NOTE | 2024-11-10 16:27 | PC.CC ---
Continuing Education Dean received telephone call from triage nurse requesting transportation coordination for Pt. Continuing Education Dean assisted with [employer] transport.
== END 2024-11-10 13:26 | disposition home or self-care (01) ==
PROVIDERS: Nurse Practitioner Family; Emergency Provider Emergency Medicine; PCP Family Medicine
DX: Z46.6 Encounter for fitting and adjustment of urinary device (principal); N39.0 Urinary tract infection, site not specified; S30.812A Abrasion of penis, initial encounter; I10 Essential (primary) hypertension; E78.00 Pure hypercholesterolemia, unspecified; E11.9 Type 2 diabetes mellitus without complications; X58.XXXA Exposure to other specified factors, initial encounter
CPT/HCPCS: 51702; 81001; 87077; 87086; 87186; 96372; 99284; A4314; J0696; J3490; A9270

== ENCOUNTER 2024-11-18 12:59 | Emergency (ER) | payer MEDICARE, MEDICAID, SELFPAY ==
[2024-11-18 14:04] VITALS: BP 143/75; PULSE 69; RESP 18; TEMP 36.4; O2SAT 96
--- NOTE | 2024-11-18 15:08 | PD.EDMALE ---
ED Male Genitalurinary RME/HPI General Chief complaint: Urogenital-Male Stated complaint: NEEDS ZAFAR CATH CHECKED, CLOGGED Time Seen by Provider: 11/18/24 13:47 Arrival date/time: 11/18/24 12:59 RME / HPI RME / HPI Narrative: DR. LEE MAIN ED EVALUATION: 89-year-old male with a history of prostate problems presents with a complaint of a clogged Zafar catheter since 4 PM yesterday, associated with suprapubic discomfort. The Zafar has been in place for the past 2 months. The patient denies fever, chills, nausea, vomiting, diarrhea, or constipation. He reports a scheduled follow-up with his urologist in 2 days. Related Data Home Medications ?Medication ?Instructions ?Recorded ?Confirmed Ketorolac Tromethamine * (TORADOL 10 mg PO Q6HR PRN PAIN #0 tabs 11/05/16 *) PARACETAMOL 500 mg PO PRN PRN SEDATION ##0 11/05/16 omeprazole 20 mg capsule,delayed 20 mg PO QDAY ##0 11/05/16 release Previous Rx's ?Medication ?Instructions ?Recorded famotidine 20 mg tablet 20 mg PO QDAY #10 tabs 08/30/23 albuterol sulfate 90 mcg/actuation 2 puff inhalation QID PRN 03/11/24 aerosol inhaler shortness of breath or wheezing #8.5 grams cephalexin 500 mg capsule 500 mg PO QID #40 caps 10/14/24 sulfamethoxazole 800 1 tab PO Q12H #14 tabs 11/14/24 mg-trimethoprim 160 mg tablet (Bactrim DS) sulfamethoxazole 800 1 tab PO Q12H 7 days #14 tabs 11/18/24 mg-trimethoprim 160 mg tablet (Bactrim DS) Allergies Allergy/AdvReac Type Severity Reaction Status Date / Time No Known Allergies Allergy Verified 11/18/24 13:06 Review of Systems Review of Systems Systems Reviewed: All systems reviewed, normal except as documented Past Medical History Past Medical History CARDIAC: Positive Hypercholesterolemia and Hypertension GASTROINTESTINAL: Positive Gastroesophageal Reflux Disease ENDOCRINE: Positive Diabetes Mellitus Type 2 Social History SMOKING STATUS: Never smoker SUBSTANCE USE: does not use ALCOHOL: Never ED Exam Narrative Physical exam: Constitutional: Awake, alert, nontoxic, in very mild discomfort HEENT: Normocephalic, atraumatic, extraocular movements intact. Neck: Supple CV: Regular rate and rhythm, no murmurs/rubs/gallops Lungs: Clear to auscultation BL, no respiratory distress. Abd: Soft, mild ttp suprapubic region, ND, no HSM noted to palpation : Zafar catheter in place Skin: Warm, dry, intact Course Quality Measures none Orders Category Date Time Status Zafar [Urinary Catheter] QS Care 11/18/24 15:03 Active Zafar to Leg Bag Routine Care 11/18/24 15:04 Ordered Miscellaneous Nursing Order NOW Care 11/18/24 15:03 Active Urinalysis, C/S if Indicated Stat Lab 11/18/24 16:24 Completed Urine Culture Stat Lab 11/18/24 16:24 Received Trimethoprim/Sulfa 160/800 Ds [Bactrim Ds] Med 11/18/24 17:25 Discontinued 1 tab PO X1 ONE Vital Signs Vital signs: Vital Signs Temperature 97.6 F 11/18/24 14:04 Pulse Rate 69 11/18/24 14:04 Respiratory Rate 18 11/18/24 14:04 Blood Pressure 143/75 H 11/18/24 14:04 Pulse Oximetry (%) 96 11/18/24 14:04 Oxygen Delivery Method Room Air 11/18/24 14:04 Urogenital - Male MDM Narrative MDM Narrative:: I, Lorin Acuna am scribing for and in the presence of Dr. Lee. 89-year-old male with a history of prostate problems presents with a complaint of a clogged Zafar catheter since 4 PM yesterday, associated with suprapubic discomfort. No systemic signs of infection noted. Differential diagnoses include Zafar obstruction, urinary retention, or early catheter-associated UTI. Since the patient would like the Zafar catheter out, the plan is to remove the clogged Zafar and if the patient can urinate well on his own then can be discharged without it. If not, then plan is to replace the Zafar catheter, monitor for adequate urine output, and provide symptomatic relief. Given stable vitals and no infectious symptoms, the patient is appropriate for discharge with follow-up with urology as planned in 2 days. Patient data External records reviewed:: [facility] previous records Clinical information provided by:: patient Social determinants that could affect healthcare access:: none Patient has the following chronic illnesses:: History of prostate problems. How is presenting disease/condition affected by chronic disease/condition?: exacerbated by Evaluation data The following diagnostics were reviewed and interpreted by me:: lab results Lab and/or radiology exams considered but not ordered:: none Interpretation Summary: See MDM narrative above. Medications / Prescriptions Medications or Prescriptions considered but not ordered:: none Medication administrations:: Medication Administration History Discontinued Medications Trimethoprim/Sulfamethoxazole (Trimethoprim/Sulfa 160/800 Ds Tablet) 1 tab PO X1 ONE Stop: 11/18/24 17:26 Last Admin: 11/18/24 17:36 Dose: 1 tab Documented By: MF see above if any Consultations Consultation(s) initiated? (list below): No Diagnosis Urogenital Male Differential Diagnosis: other (Zafar obstruction, urinary retention, catheter-associated UTI.) Most likely diagnosis given after review of the tests above:: UTI Complication, blocked Zafar catheter Admission Indicated Admission indicated?: not indicated Admission Request Was there a request for admission?: No Disposition Plan Disposition Plan: Discharge Discharge Attestation Discharge Attestation: The patient and all family members were given an opportunity to ask questions and understood the discharge instructions. Discharge instructions specifically effects, indications for sooner follow up or return to the emergency department, and the expected course of current diagnosis. Patient condition: Stable Discharge Plan Plan Patient Disposition: HOME (Self Care) Patient condition on transfer: Stable Prescriptions/Referrals Prescriptions/Med Rec: New sulfamethoxazole-trimethoprim [Bactrim DS] 800-160 mg tablet 1 tab PO Q12H 7 Days Qty: 14 0RF No Action omeprazole 20 MG capsule,delayed release(DR/EC) 20 mg PO QDAY Qty: 0 Ketorolac Tromethamine * (TORADOL *) 10 MG tablet 10 mg PO Q6HR PRN (Reason: PAIN) Qty: 0 PARACETAMOL 500 mg PO PRN PRN (Reason: SEDATION) Qty: 0 albuterol sulfate 90 mcg/actuation HFA aerosol inhaler 2 puff inhalation QID PRN (Reason: shortness of breath or wheezing) Qty: 8.5 0RF cephalexin 500 mg capsule 500 mg PO QID Qty: 40 0RF sulfamethoxazole-trimethoprim [Bactrim DS] 800-160 mg tablet 1 tab PO Q12H Qty: 14 0RF famotidine 20 mg tablet 20 mg PO QDAY Qty: 10 0RF Referrals: Roberto Vazquez MD [Primary Care Provider] - In 1 week Outpatient Orders: Bacterial Ag-Ltx, CSF (Routine) Location: None Selected Ordered By: Tali Lee Problem List Clinical Impression: Urinary tract infection, Complication, blocked Zafar catheter Patient/Caregiver Discharge Instructions Education Materials: ED Bladder Infection, Male (Adult) Additional Instructions: Algunos principios generales de jerrell que pueden ayudarte son los principios de ADELANTE: Agua: (beber suficiente agua fresca para mantenerse hidratado, priorizando el agua en lugar de refrescos, caf?, t?, jugos, etc.). [place] (descansar adecuadamente por la noche, acostarse unas horas antes de la medianoche y evitar las pantallas, la televisi?n y la m?jw kar alvaro antes de acostarse, as? arturo las comidas pesadas alvaro antes de acostarse). Ejercicio: (ejercicio/caminatas diarias seg?n la tolerancia). Ly solar: (exponer la piel al maurilio hazel 15-20 minutos aproximadamente, temprano por la ma?mi y al atardecer, para obtener los beneficios de la vitamina D). Aire (ejercicios de respiraci?n profunda temprano por la ma?mi al aire kelby). Nutricion: (consumir heavenly dieta a base de plantas, evitar las cody en general y los alimentos altamente procesados). Templanza (evitar el alcohol, las drogas il?citas, las bebidas con cafe?na, fumar, etc.). [place] (dedicar tiempo diariamente al estudio b?blico y la oraci?n: la contemplaci?n tiene beneficios para la jerrell). Recursos adicionales que pueden ser ?benjamin: www.comeandreason.com, consulte la secci?n de recursos y seminarios. Print Language: South Korean Stand Alone Forms: Marlin Award Info., Patient Portal Info Letter
[2024-11-18 16:30] LABS: Collection Type, Urine Clean Catch
[2024-11-18 16:50] LABS: Bacteria,Urine 1+; Bilirubin,Urine Negative (Negative); Blood,Urine Negative (Negative); Clarity,Urine Turbid (Clear/Hazy); Color,Urine Yellow (Lt Yel-Yel); Glucose, Urine Negative (Negative); Ketones,Urine Negative (Negative); Leukocyte Esterase,Urine Positive (Negative); Nitrite,Urine Positive (Negative); PH,Urine 6.5 (5.0-7.0); Protein,Urine Trace (Neg - Trace); RBC,Urine 13 /hpf (0-3); Specific Gravity,Urine 1.018 (1.001-1.035); Squamous Epithelial Cell,Urine < 1 /hpf (0-5); Urobilinogen,Urine Negative mg/dL (0.0-1.0); WBC,Urine 196 /hpf (0-5)
[2024-11-18 16:54] LABS: Culture Indicated,Urine Yes
--- NOTE | 2024-11-18 17:09 | PC.NURSE ---
ZAFAR CATHETER REMOVED, PT ABLE TO URINATE WITHOUT PAIN OR DISCOMFORT AT THIS TIME. PT URINATED 100ML'S INTO URINAL NO C/O PAIN OR DISCOMFORT.PT VERBALIZED RELIEF
[2024-11-18] MEDS: TRIMETHOPRIM/SULFA 160/800 DS TABLET 1 TAB PO (17:36)
--- NOTE | 2024-11-18 17:49 | PC.CC ---
Nikky BLAIR was consulted by the [facility] regarding transportation for the patient back home. Nikky BLAIR arranged transportation for the patient to return back home via [facility].
== END 2024-11-18 18:00 | disposition home or self-care (01) ==
PROVIDERS: Emergency Provider Family Medicine; PCP Family Medicine
DX: T83.510A Infection and inflammatory reaction due to cystostomy catheter, initial encounter (principal); N39.0 Urinary tract infection, site not specified; Y73.8 Miscellaneous gastroenterology and urology devices associated with adverse incidents, not elsewhere classified
CPT/HCPCS: 81001; 87077; 87086; 87186; 99284; A4314; A9270

== ENCOUNTER 2024-11-22 01:16 | Emergency (ER) | payer MEDICARE, MEDICAID, SELFPAY ==
[2024-11-22 02:02] VITALS: BP 160/84; PULSE 96; RESP 19; TEMP 36.6; O2SAT 97
--- NOTE | 2024-11-22 02:10 | PD.EDMALE ---
ED Male Genitalurinary RME/HPI General Chief complaint: Urogenital-Male Stated complaint: UNABLE TO URINATED SINCE 1600 Time Seen by Provider: 11/22/24 02:04 Arrival date/time: 11/22/24 01:16 89M with history of HTN and DM presents to ED with 1 day of urinary retention. Patient had Ordonez removed about 1 week ago. Limitations: no limitations Related Data Home Medications ?Medication ?Instructions ?Recorded ?Confirmed Ketorolac Tromethamine * (TORADOL 10 mg PO Q6HR PRN PAIN #0 tabs 11/05/16 *) PARACETAMOL 500 mg PO PRN PRN SEDATION ##0 11/05/16 omeprazole 20 mg capsule,delayed 20 mg PO QDAY ##0 11/05/16 release Previous Rx's ?Medication ?Instructions ?Recorded famotidine 20 mg tablet 20 mg PO QDAY #10 tabs 08/30/23 albuterol sulfate 90 mcg/actuation 2 puff inhalation QID PRN 03/11/24 aerosol inhaler shortness of breath or wheezing #8.5 grams cephalexin 500 mg capsule 500 mg PO QID #40 caps 10/14/24 sulfamethoxazole 800 1 tab PO Q12H #14 tabs 11/14/24 mg-trimethoprim 160 mg tablet (Bactrim DS) sulfamethoxazole 800 1 tab PO Q12H 7 days #14 tabs 11/18/24 mg-trimethoprim 160 mg tablet (Bactrim DS) Allergies Allergy/AdvReac Type Severity Reaction Status Date / Time No Known Allergies Allergy Verified 11/22/24 01:16 Review of Systems Review of Systems Systems Reviewed: All systems reviewed, normal except as documented Genitourinary Genitourinary: Reports as per HPI and Reports difficulty urinating Past Medical History Past Medical History CARDIAC: Positive Hypercholesterolemia and Hypertension; Negative Congestive Heart Failure RESPIRATORY: Negative Chronic Obstructive Pulmonary Disease (COPD) GASTROINTESTINAL: Positive Gastroesophageal Reflux Disease GENITOURINARY: Negative Renal Disease ENDOCRINE: Positive Diabetes Mellitus Type 2; Negative Diabetes Mellitus Type 1 Social History SMOKING STATUS: Never smoker SUBSTANCE USE: does not use ED Exam General Limitations: Present no limitations General appearance: Present alert and in no apparent distress Head Head exam: Present atraumatic Neck Neck exam: Present normal inspection, full ROM and trachea midline Chest Chest inspection: Present normal inspection and symmetric chest wall rise Neurological Exam Neurological exam: Present alert and oriented X3 Psychiatric Psychiatric exam: Present normal affect and normal mood Skin Skin exam: Present warm, dry, intact and normal color Course Quality Measures none Orders Category Date Time Status Catheter [Urinary Catheter] QS Care 11/22/24 02:04 Active Ordonez to Leg Bag Routine Care 11/22/24 02:04 Ordered Vital Signs Vital signs: Vital Signs Temperature 98 F 11/22/24 02:02 Pulse Rate 96 11/22/24 02:02 Respiratory Rate 19 11/22/24 02:02 Blood Pressure 160/84 H 11/22/24 02:02 Pulse Oximetry (%) 97 11/22/24 02:02 Oxygen Delivery Method Room Air 11/22/24 02:02 O2 at 97% on RA and WNLs Urogenital - Male MDM Narrative MDM Narrative:: 89M with history of HTN and DM presents to ED with 1 day of urinary retention. Patient had Ordonez removed about 1 week ago. Physical exam reveals well-appearing male. Patient is afebrile, calm, and alert. Ordonez placed and urine flowed freely. Patient data External records reviewed:: [facility] previous records Clinical information provided by:: patient Social determinants that could affect healthcare access:: none Patient has the following chronic illnesses:: HTN and DM How is presenting disease/condition affected by chronic disease/condition?: uneffected by Evaluation data The following diagnostics were reviewed and interpreted by me:: other (specify) (none) Lab and/or radiology exams considered but not ordered:: not ordered Interpretation Summary: n/a Medications / Prescriptions Medications or Prescriptions considered but not ordered:: not ordered Medication administrations:: n/a Consultations Consultation(s) initiated? (list below): No Diagnosis Urogenital Male Differential Diagnosis: urinary tract infection, priapism, urethritis, epididymitis, genital herpes simplex, prostatitis, acute retention of urine and inguinal hernia Most likely diagnosis given after review of the tests above:: urinary retention Admission Indicated Admission indicated?: not indicated Admission Request Was there a request for admission?: No Disposition Plan Disposition Plan: Discharge Discharge Attestation Discharge Attestation: The patient and all family members were given an opportunity to ask questions and understood the discharge instructions. Discharge instructions specifically effects, indications for sooner follow up or return to the emergency department, and the expected course of current diagnosis. Patient condition: Stable Discharge Plan Plan Patient Disposition: HOME (Self Care) Discharge Disposition comment: Stable Prescriptions/Referrals Prescriptions/Med Rec: No Action omeprazole 20 MG capsule,delayed release(DR/EC) 20 mg PO QDAY Qty: 0 Ketorolac Tromethamine * (TORADOL *) 10 MG tablet 10 mg PO Q6HR PRN (Reason: PAIN) Qty: 0 PARACETAMOL 500 mg PO PRN PRN (Reason: SEDATION) Qty: 0 albuterol sulfate 90 mcg/actuation HFA aerosol inhaler 2 puff inhalation QID PRN (Reason: shortness of breath or wheezing) Qty: 8.5 0RF cephalexin 500 mg capsule 500 mg PO QID Qty: 40 0RF sulfamethoxazole-trimethoprim [Bactrim DS] 800-160 mg tablet 1 tab PO Q12H Qty: 14 0RF sulfamethoxazole-trimethoprim [Bactrim DS] 800-160 mg tablet 1 tab PO Q12H 7 Days Qty: 14 0RF famotidine 20 mg tablet 20 mg PO QDAY Qty: 10 0RF Problem List Clinical Impression: Acute retention of urine Patient/Caregiver Discharge Instructions Education Materials: ED Urinary Retention, Male Additional Instructions: Please follow-up with PCP within 24-48 hours and return immediately if symptoms worsen. Print Language: Ukrainian Stand Alone Forms: Patient Portal Info Letter KEM/MACKENZIE Supervising Physician KEM/MACKENZIE Supervising Physician: Dr. Arriaga
[2024-11-22 02:25] VITALS: BMI 29.2
== END 2024-11-22 02:28 | disposition home or self-care (01) ==
LOC: SERX 03:09
PROVIDERS: Emergency Provider Emergency Medicine; PCP Family Medicine
DX: R33.9 Retention of urine, unspecified (principal)
CPT/HCPCS: 51702; 99283

== ENCOUNTER 2025-01-04 12:17 | Emergency (ER) | payer MEDICARE, MEDICAID, SELFPAY ==
[2025-01-04 12:47] VITALS: BP 154/85; PULSE 88; RESP 18; TEMP 37.1; O2SAT 99; BMI 33.5
--- NOTE | 2025-01-04 13:19 | PD.EDMALE ---
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 presents to the emergency room with a chief complaint of unable to urinate since this morning Mode of arrival: ambulatory Limitations: no limitations Related Data Home Medications ?Medication ?Instructions ?Recorded ?Confirmed Ketorolac Tromethamine * (TORADOL 10 mg PO Q6HR PRN PAIN #0 tabs 11/05/16 *) PARACETAMOL 500 mg PO PRN PRN SEDATION ##0 11/05/16 omeprazole 20 mg capsule,delayed 20 mg PO QDAY ##0 11/05/16 release Previous Rx's ?Medication ?Instructions ?Recorded famotidine 20 mg tablet 20 mg PO QDAY #10 tabs 08/30/23 albuterol sulfate 90 mcg/actuation 2 puff inhalation QID PRN 03/11/24 aerosol inhaler shortness of breath or wheezing #8.5 grams cephalexin 500 mg capsule 500 mg PO QID #40 caps 10/14/24 sulfamethoxazole 800 1 tab PO Q12H #14 tabs 11/14/24 mg-trimethoprim 160 mg tablet (Bactrim DS) Allergies Allergy/AdvReac Type Severity Reaction Status Date / Time No Known Allergies Allergy Verified 01/04/25 12:20 Review of Systems Review of Systems Systems Reviewed: All systems reviewed, normal except as documented Constitutional Constitutional: Reports system reviewed and no additional complaints, except as documented, Denies fatigue, Denies fever(s), Denies headache(s) and Denies weakness Eyes Eyes: Reports system reviewed and no additional complaints, except as documented, Denies blurry vision and Denies change in vision ENT Ears, Nose, Mouth, and Throat: Reports system reviewed and no additional complaints, except as documented, Denies otalgia, Denies headache(s), Denies nasal congestion, Denies throat swelling and Denies vertigo Cardiovascular Cardiovascular: Reports system reviewed and no additional complaints, except as documented, Denies chest pain, Denies dyspnea and Denies dyspnea on exertion Respiratory Respiratory: Reports system reviewed and no additional complaints, except as documented, Denies chest congestion, Denies cough, Denies dyspnea, Denies dyspnea on exertion and Denies wheezing Gastrointestinal Gastrointestinal: Reports system reviewed and no additional complaints, except as documented, Denies abdominal pain, Denies cramping, Denies nausea and Denies vomiting Genitourinary Genitourinary: Reports system reviewed and no additional complaints, except as documented, Reports difficulty urinating, Denies dysuria and Denies hematuria Musculoskeletal Musculoskeletal: Reports system reviewed and no additional complaints, except as documented and Denies back pain Integumentary/Breasts Skin/Breast: Reports system reviewed and no additional complaints, except as documented and Denies wounds Neurologic Neurologic: Reports system reviewed and no additional complaints, except as documented, Denies confusion, Denies headache(s), Denies lack of coordination, Denies vertigo and Denies weakness Psychiatric Psychiatric: Reports system reviewed and no additional complaints, except as documented, Denies anxiety, Denies confusion, Denies depression, Denies paranoia, Denies suicidal ideation and Denies tactile hallucinations Endocrine Endocrine: Reports system reviewed and no additional complaints, except as documented and Denies fatigue Hematologic/Lymphatic Hematologic/Lymphatic: Reports system reviewed and no additional complaints, except as documented and Denies lymphadenopathy Allergic/Immunologic Allergic/Immunologic: Reports system reviewed and no additional complaints, except as documented, Denies throat swelling, Denies urticaria and Denies wheezing Past Medical History Past Medical History CARDIAC: Positive Hypercholesterolemia and Hypertension; Negative Congestive Heart Failure RESPIRATORY: Negative Chronic Obstructive Pulmonary Disease (COPD) GASTROINTESTINAL: Positive Gastroesophageal Reflux Disease GENITOURINARY: Negative Renal Disease ENDOCRINE: Positive Diabetes Mellitus Type 2; Negative Diabetes Mellitus Type 1 Social History SMOKING STATUS: Never smoker SUBSTANCE USE: does not use ED Exam General Limitations: Present no limitations General appearance: Present alert and in no apparent distress Head Head exam: Present atraumatic Eye Eye exam: Present normal appearance, PERRL and EOMI ENT ENT exam: Present normal exam, normal oropharynx and mucous membranes moist Neck Neck exam: Present normal inspection, full ROM and trachea midline Chest Chest inspection: Present normal inspection and symmetric chest wall rise Respiratory Respiratory exam: Present normal lung sounds bilaterally Cardiovascular Cardiovascular exam: Present regular rate, normal rhythm and normal heart sounds Abdominal Exam Abdominal exam: Present soft and normal bowel sounds Extremities Exam Extremities exam: Present normal inspection and full ROM Back Exam Back exam: Present normal inspection and full ROM Neurological Exam Neurological exam: Present alert, oriented X3 and CN II-XII intact Psychiatric Psychiatric exam: Present normal affect and normal mood Skin Skin exam: Present warm, dry, intact and normal color Course Quality Measures none Orders Category Date Time Status Ordonez [Urinary Catheter, Remove] ONCE Care 01/04/25 12:52 Active Ordonez [Urinary Catheter] QS Care 01/04/25 12:52 Active Ordonez to Leg Bag Routine Care 01/04/25 12:52 Ordered Vital Signs Vital signs: Vital Signs Temperature 98.7 F 01/04/25 12:47 Pulse Rate 88 01/04/25 12:47 Respiratory Rate 18 01/04/25 12:47 Blood Pressure 154/85 H 01/04/25 12:47 Pulse Oximetry (%) 99 01/04/25 12:47 Oxygen Delivery Method Room Air 01/04/25 12:47 Urogenital - Male MDM Narrative MDM Narrative:: 89-year-old male with a history of BPH presents to the emergency room with a chief complaint of unable to urinate since this morning Patient is hemodynamically stable and in no apparent distress. Patient is afebrile nontachycardic nontachypneic Physical examination shows tenderness to the suprapubic area of the patient's abdomen and bladder. Patient has a Ordonez catheter in place already but states it has not stopped draining since this morning. A Ordonez catheter was replaced with no complications. The new Ordonez catheter was draining and about 400 mL of urinary output was removed. The leg bag was then placed. Patient states he is already on antibiotics to prevent any UTIs and has a follow-up appointment with his urologist. Patient was discharged and educated to follow-up with primary care provider in the next 24 to 48 hours and return to the emergency room for any evidence of worsening signs or symptoms Patient data External records reviewed:: [facility] previous records Clinical information provided by:: patient Social determinants that could affect healthcare access:: none Patient has the following chronic illnesses:: BPH How is presenting disease/condition affected by chronic disease/condition?: caused by Evaluation data The following diagnostics were reviewed and interpreted by me:: lab results Lab and/or radiology exams considered but not ordered:: Labs and radiology exams considered and ordered Interpretation Summary: N/A Medications / Prescriptions Medications or Prescriptions considered but not ordered:: No medication given Medication administrations:: No medication given Consultations Consultation(s) initiated? (list below): No Diagnosis Urogenital Male Differential Diagnosis: urinary tract infection and acute retention of urine Most likely diagnosis given after review of the tests above:: Acute retention of urine Admission Indicated Admission indicated?: not indicated Admission Request Was there a request for admission?: No Disposition Plan Disposition Plan: Discharge Discharge Attestation Discharge Attestation: The patient and all family members were given an opportunity to ask questions and understood the discharge instructions. Discharge instructions specifically effects, indications for sooner follow up or return to the emergency department, and the expected course of current diagnosis. Patient condition: Stable Discharge Plan Plan Patient Disposition: HOME (Self Care) Discharge Disposition comment: Stable Prescriptions/Referrals Prescriptions/Med Rec: No Action omeprazole 20 MG capsule,delayed release(DR/EC) 20 mg PO QDAY Qty: 0 Ketorolac Tromethamine * (TORADOL *) 10 MG tablet 10 mg PO Q6HR PRN (Reason: PAIN) Qty: 0 PARACETAMOL 500 mg PO PRN PRN (Reason: SEDATION) Qty: 0 albuterol sulfate 90 mcg/actuation HFA aerosol inhaler 2 puff inhalation QID PRN (Reason: shortness of breath or wheezing) Qty: 8.5 0RF cephalexin 500 mg capsule 500 mg PO QID Qty: 40 0RF sulfamethoxazole-trimethoprim [Bactrim DS] 800-160 mg tablet 1 tab PO Q12H Qty: 14 0RF famotidine 20 mg tablet 20 mg PO QDAY Qty: 10 0RF Problem List Clinical Impression: Acute retention of urine Patient/Caregiver Discharge Instructions Education Materials: ED Urinary Retention, Male Additional Instructions: Por favor, consulte con hansen ur?logo en las pr?ximas 24 a 48 horas. Le reemplazaron la sonda Ordonez sin complicaciones. Se dren? 400 ml de orina. Si observa cualquier signo de empeoramiento de los signos o s?ntomas, acuda a urgencias de inmediato. Print Language: Lithuanian Stand Alone Forms: Marlin Award Info., Work/School Release, Patient Portal Info Letter PA/STEAM CONDITIONING OPERATOR Supervising Physician PA/STEAM CONDITIONING OPERATOR Supervising Physician: Dr. Tobias
== END 2025-01-04 13:40 | disposition home or self-care (01) ==
LOC: SERX 14:45
PROVIDERS: Emergency Provider Emergency Medicine
DX: N40.1 Benign prostatic hyperplasia with lower urinary tract symptoms (principal); R33.8 Other retention of urine
CPT/HCPCS: 51702; 99282; A4314